=== PATIENT | female | born 1995 | race Caucasian/White ===

== ENCOUNTER → 2018-02-19 | Outpatient (CLI) | payer MEDICAID | LOC: BMCIMAGING 12:50 | PROVIDERS: ATTEND Family Medicine | DX: R59.9 Enlarged lymph nodes, unspecified (principal) | CPT/HCPCS: 76536-PO ==

== ENCOUNTER → 2018-08-02 | Outpatient (CLI) | payer MEDICAID ==
[~2018-08-02] MED LIST: IOHEXOL 300 mgI/ML (OMNIPAQUE) 150 ML BTL IV ONE
== END ==
LOC: FIMAGING 15:49
PROVIDERS: ATTEND Family Medicine
DX: M62.838 Other muscle spasm (principal)
CPT/HCPCS: Q9967